=== PATIENT | female | born 1985 | race African-American/Black ===

== ENCOUNTER 2016-08-04 09:27 | Inpatient (IN) | payer BC ==
[~2016-08-04] VITALS: Ht 167.6 cm; Wt 77.5 kg
[2016-08-04 10:10] LABS: Basophils # (auto) 0 uL; Basophils % (auto) 0.3 % (0.0-2.0); Eosinophils # (auto) 0 uL; Eosinophils % (auto) 0.1 % (0.0-7.0); Hematocrit 40.7 % (36.0-46.0); Hemoglobin 13.4 g/dL (12.2-16.2); Lymphocytes # (auto) 1.4 uL; Lymphocytes % (auto) 15.9 % (10.0-50.0); Mean Corpuscular Hemoglobin 27.1 pg (28.0-32.0); Monocytes # (auto) 0.5 uL; Monocytes % (auto) 5.1 % (0.0-12.0); Neutrophils % (auto) 78.6 % (37.0-80.0); Platelet Count (auto) 402 10^3/uL (140-450); Red Cell Distribution Width 13.4 % (11.6-16.0); White Blood Cell 8.9 10^3/uL (4.4-10.8)
[2016-08-04 10:32] LABS: Albumin 3.8 g/dL (3.4-5.0); BUN/Creatinine Ratio 12.8; Bilirubin, Total 0.4 mg/dL (0.2-1.0); Calcium 9.3 mg/dL (8.5-10.1); Potassium 3.6 mmol/L (3.5-5.1)
[2016-08-04] MEDS ORDERED: SODIUM CHLORIDE 0.9% 1,000 ML IVB ONE (12:54)
[2016-08-04] MEDS ORDERED: HYDROmorphone HCL 2 MG/ML VL IV ONE (13:00)
[2016-08-04] MEDS ORDERED: ONDANSETRON HCL 4 MG/2 ML VIAL IV ONE (13:00)
[2016-08-04] MEDS ORDERED: PANTOPRAZOLE SODIUM 40 MG/10 ML VIAL IV ONE (13:00)
[2016-08-04 14:03] LABS: Amylase 39 U/L (25-115)
[2016-08-04] MEDS ORDERED: ONDANSETRON HCL 4 MG/2 ML VIAL IV PRN (15:45)
[2016-08-04] MEDS: SODIUM CHLORIDE 0.9% 1,000 ML IV SCH ×2 (15:46→16:46)
[2016-08-04] MEDS: LEVOFLOXACIN 500MG 100 ML IV SCH (15:56)
[2016-08-04] MEDS: HYDROcodone-ACET 5/325MG TAB PO PRN ×2 (16:12→22:40)
[2016-08-04] MEDS: MORPHINE SULF INJ 2 MG/ML SYRINGE 1ML IV PRN ×2 (18:07→22:10)
[2016-08-04 21:30] LABS: Urine Bilirubin Negative (Negative); Urine Blood Negative /uL (Negative); Urine Color Yellow (Yellow); Urine Glucose Normal (Normal); Urine Mucus MODERATE (None Seen); Urine Nitrite Negative (Negative); Urine RBC 10 /hpf (0 - 4); Urine Squamous Epithelial Cell MANY /hpf (<5); Urine Urobilinogen Normal (Negative)
[2016-08-04 21:33] LABS: Urine Ketone 2+ (Negative)
[2016-08-04 22:17] VITALS: BP 144/92
[2016-08-05] MEDS: MORPHINE SULF INJ 2 MG/ML SYRINGE 1ML IV PRN ×5 (01:59→22:15)
[2016-08-05] MEDS: SODIUM CHLORIDE 0.9% 1,000 ML IV SCH ×2 (04:44→06:07)
[2016-08-05 04:47] VITALS: BP_SYST 144; BP_SYST 156; BP_DIAS 100; BP_DIAS 101
[2016-08-05] MEDS: HYDROcodone-ACET 5/325MG TAB PO PRN ×2 (05:37→20:28)
[2016-08-05 07:43] LABS: Partial Thromboplastin Time 26.8 sec (22.64-33.71)
[2016-08-05 07:44] LABS: Basophils # (auto) 0 uL; Basophils % (auto) 0.3 % (0.0-2.0); Eosinophils # (auto) 0.1 uL; Eosinophils % (auto) 0.8 % (0.0-7.0); Hematocrit 36.3 % (36.0-46.0); Hemoglobin 11.9 g/dL (12.2-16.2); INR 1.31 (0.9-1.15); Lymphocytes # (auto) 1.7 uL; Lymphocytes % (auto) 24.3 % (10.0-50.0); Mean Corpuscular Hemoglobin 27.2 pg (28.0-32.0); Mean Corpuscular Hgb Conc. 32.8 g/dL (32.0-36.0); Mean Corpuscular Volume 83.1 fL (80.0-100.0); Mean Platelet Volume 8.2 fL (7.4-10.4); Monocytes # (auto) 0.2 uL; Monocytes % (auto) 3.6 % (0.0-12.0); Neutrophils # (auto) 4.8 uL; Platelet Count (auto) 289 10^3/uL (140-450); Prothrombin Time 13.5 sec (9.37-12.3); Red Cell Distribution Width 13.6 % (11.6-16.0); White Blood Cell 6.8 10^3/uL (4.4-10.8)
[2016-08-05 07:55] LABS: Albumin 3.3 g/dL (3.4-5.0); BUN/Creatinine Ratio 12.7; Bilirubin, Total 0.5 mg/dL (0.2-1.0); Calcium 8.7 mg/dL (8.5-10.1); Potassium 3.4 mmol/L (3.5-5.1); Total Protein 7.6 g/dL (6.4-8.2)
[2016-08-05] MEDS ORDERED: ceFAZolin 1GM/50ML D5W 50 ML IV ONE (08:53)
[2016-08-05 09:00] VITALS: BP 148/98
[2016-08-05] MEDS ORDERED: BUPIVACAINE 0.25% INJ 50ML VIAL ONE (09:16)
[2016-08-05] MEDS ORDERED: POVIDONE IODINE 10 % TOPICAL OINT 30GM TOP ONE ×2 (09:16→11:46)
[2016-08-05] MEDS ORDERED: ceFAZolin 1GM VL ONE (09:16)
[2016-08-05] MEDS ORDERED: POTASSIUM CHL 20 Meq TABLET PO ONE (09:30)
[2016-08-05] MEDS ORDERED: fentaNYL CITRATE 100 MCG/2 ML VL ONE (09:57)
[2016-08-05] MEDS ORDERED: MIDAZOLAM HCL 1MG/1ML-2 ML VIAL ONE (09:58)
[2016-08-05] MEDS ORDERED: MEPERIDINE HCL (50 MG/ML) 1 ML VIAL ONE (09:58)
[2016-08-05] MEDS: PANTOPRAZOLE SODIUM 40 MG/10 ML VIAL IV SCH (10:00)
[2016-08-05] MEDS: LEVOFLOXACIN 500MG 100 ML IV SCH (10:00)
[2016-08-05] MEDS ORDERED: DEXAMETHASONE SOD PHOS 10MG/1ML VIAL INJ ONE (10:01)
[2016-08-05] MEDS ORDERED: PROPOFOL 10 MG/ML 20 ML IV ONE (10:01)
[2016-08-05] MEDS ORDERED: ROCURONIUM 10MG/ML 10ML VIAL IV ONE (10:43)
[2016-08-05] MEDS ORDERED: NEOSTIGMINE 1 MG/ML INJ (10mg/10ML VIAL) ONE (11:06)
[2016-08-05] MEDS ORDERED: KETOROLAC TROMETH 30 MG/ML 1ML VIAL ONE (11:06)
[2016-08-05] MEDS ORDERED: GLYCOPYRROLATE 0.2 MG/ML 1ML VIAL ONE (11:06)
[2016-08-05 17:00] VITALS: BP 146/90
[2016-08-05 22:00] VITALS: BP 142/99
[2016-08-06] MEDS: MORPHINE SULF INJ 2 MG/ML SYRINGE 1ML IV PRN ×5 (02:07→20:23)
[2016-08-06] MEDS: HYDROcodone-ACET 5/325MG TAB PO PRN ×2 (04:49→17:50)
[2016-08-06 05:00] VITALS: BP 151/92
[2016-08-06] MEDS ORDERED: cloNIDine HCL 0.1 MG TAB ONE (05:04)
[2016-08-06 06:10] LABS: Albumin 3.2 g/dL (3.4-5.0); Potassium 3.7 mmol/L (3.5-5.1)
[2016-08-06 06:13] LABS: BUN/Creatinine Ratio 16.9
[2016-08-06 06:15] LABS: Basophils # (auto) 0 uL; Basophils % (auto) 0.3 % (0.0-2.0); Bilirubin, Total 0.4 mg/dL (0.2-1.0); DEFINITIVE VIEW TRANSMISSION; Eosinophils # (auto) 0 uL; Hematocrit 35.7 % (36.0-46.0); Hemoglobin 11.6 g/dL (12.2-16.2); Lymphocytes # (auto) 1.5 uL; Lymphocytes % (auto) 13.2 % (10.0-50.0); Mean Corpuscular Hemoglobin 26.8 pg (28.0-32.0); Mean Corpuscular Hgb Conc. 32.4 g/dL (32.0-36.0); Mean Corpuscular Volume 82.8 fL (80.0-100.0); Mean Platelet Volume 8.6 fL (7.4-10.4); Monocytes # (auto) 0.7 uL; Monocytes % (auto) 6.5 % (0.0-12.0); Neutrophils # (auto) 9.1 uL; Platelet Count (auto) 309 10^3/uL (140-450); Red Cell Distribution Width 13.7 % (11.6-16.0); Total Protein 7.6 g/dL (6.4-8.2); White Blood Cell 11.3 10^3/uL (4.4-10.8)
[2016-08-06 08:00] VITALS: BP 137/86
[2016-08-06] MEDS: PANTOPRAZOLE SODIUM 40 MG/10 ML VIAL IV SCH (10:21)
[2016-08-06] MEDS: LEVOFLOXACIN 500MG 100 ML IV SCH (10:21)
[2016-08-06] MEDS: SODIUM CHLORIDE 0.9% 1,000 ML IV SCH ×2 (10:22→19:07)
[2016-08-06 13:00] VITALS: BP 134/76
[2016-08-06 17:00] VITALS: BP 147/96
[2016-08-06] MEDS ORDERED: TEMAZEPAM 15 MG CAP PO PRN (18:00)
[2016-08-06 22:00] VITALS: BP 153/104
[2016-08-06] MEDS: cloNIDine HCL 0.1 MG TAB PO PRN (22:16)
[2016-08-07] MEDS: MORPHINE SULF INJ 2 MG/ML SYRINGE 1ML IV PRN ×3 (01:33→10:59)
[2016-08-07] MEDS: HYDROcodone-ACET 5/325MG TAB PO PRN ×2 (03:28→13:45)
[2016-08-07 05:00] VITALS: BP 139/100
[2016-08-07 09:30] VITALS: BP 140/96
[2016-08-07] MEDS: SODIUM CHLORIDE 0.9% 1,000 ML IV SCH (10:25)
[2016-08-07] MEDS: PANTOPRAZOLE SODIUM 40 MG/10 ML VIAL IV SCH (10:45)
[2016-08-07] MEDS: LEVOFLOXACIN 500MG 100 ML IV SCH (10:45)
[2016-08-07 13:20] VITALS: BP 157/109
[2016-08-07] MEDS: cloNIDine HCL 0.1 MG TAB PO PRN (13:38)
[2016-08-07 15:29] VITALS: BP 126/95
[2016-08-07 16:27] VITALS: BP 126/95
== END 2016-08-07 17:00 | disposition home or self-care (01) | DRG 418 ==
LOC: ER 09:27 → OVERFLOW 09:28 → CENTRAL 17:39
PROVIDERS: ADMIT Internal Medicine; ATTEND Internal Medicine
PROC: 0FT44ZZ Resection of Gallbladder, Percutaneous Endoscopic Approach (ICD-10-PCS; principal; 2016-08-05 10:29)
DX: K80.00 Calculus of gallbladder with acute cholecystitis without obstruction (principal); N39.0 Urinary tract infection, site not specified; I10 Essential (primary) hypertension; E66.9 Obesity, unspecified; K66.8 Other specified disorders of peritoneum; Z68.27 Body mass index [BMI] 27.0-27.9, adult; Z98.890 Other specified postprocedural states
CPT/HCPCS: 36415; 76705; 80053; 81001; 82150; 83690; 84702; 85025; 85610; 85730; 86850; 86900; 86901; 94761; 96361; 96374; 96375; C9113; J0690; J1100; J1885; J1956; J2250; J2405; J2704; J3490